=== PATIENT | male | born 1950 | race Caucasian/White ===

== ENCOUNTER 2022-03-28 10:04 | Inpatient (IN) | payer OTHER, SELFPAY ==
[2022-03-28] VITALS (11 sets, daily range): BP systolic 110–140; BP diastolic 63–82; PULSE 56–88; RESP 15–18; TEMP 36.7–38.1; O2SAT 92–98; BMI 30.2; BMI 29.7
--- NOTE | 2022-03-28 10:30 | EX.ED.DYSGE1 ---
HPI History of Present Illness Chief Complaint: Abd Pain Informant: patient Onset/Context/Timing Onset: Yesterday Context: Gradual Onset Current Severity: Moderate Maximum Severity: Moderate Narrative Narrative: Patient presents secondary to right lower quadrant abdominal pain. Pain started yesterday and started more as a band across his mid abdomen. It is now moved to the right lower quadrant. He states has not had much to eat or drink because he has poor appetite. He had some chills this morning but has not measured a fever. He denies urinary symptoms. [facility] Medical History Chronic diarrhea Hypertension Allergy/AdvReac Type Severity Reaction Status Date / Time No Known Allergies Allergy Verified 03/28/22 10:05 Social History Smoking Status: Former smoker ROS ROS ED Constitutional Constitutional ED: Reports chills; Denies fever(s) Eyes Eyes: Denies change in vision or discharge from eye(s) ENT ENT ED: Denies discharge from eye(s), rhinorrhea or sore throat Cardiovascular Cardiovascular: Denies chest pain or palpitations Respiratory/Chest Respiratory/Chest: Denies cough or dyspnea Gastrointestinal Gastrointestinal: Reports abdominal pain; Denies diarrhea, nausea or vomiting Genitourinary Genitourinary ED: Denies dysuria Musculoskeletal Musculoskeletal: Denies back pain or extremity pain Integumentary Denies Abrasions or rash Neurologic Neurologic: Denies headache(s) or weakness Allergic/Immunologic Allergic/Immunologic ED: Denies lip swelling or urticaria EXAM Physical Exam Const Vital Signs: 03/28/22 10:06 03/28/22 14:08 03/28/22 14:24 Temperature 99.5 F H 98.1 F Temperature Source Temporal Temporal Pulse Rate 56 L 85 85 Respiratory Rate 17 16 15 Blood Pressure 129/78 H 133/82 H 133/82 H Blood Pressure Mean 95 99 99 Blood Pressure Source Monitor Pulse Ox 97 95 95 Oxygen Delivery Method Room Air Room Air Room Air Positive well nourished and well developed General Appearance ED: well developed HEENT Reports normocephalic and head/scalp atraumatic Eyes PERRL and EOMs intact bilaterally Neck supple Chest Wall inspection of chest normal and palpation of chest normal Resp normal respiratory effort and clear to auscultation bilaterally Cardio regular rate and regular rhythm GI GI Narrative: Moderate tenderness to the right lower quadrant. Hypoactive bowel sounds. Extremity normal to inspection Neuro oriented x3 and no sensory deficits noted Sensorium / Orientation: alert Motor Exam: strength 5/5 throughout Psych mental status grossly normal Skin no rashes or lesions noted MDM MDM MDM Narrative Medical decision making narrative: Patient declined anything for pain. Lab work obtained along with a CT scan of the abdomen and pelvis. Urinalysis ordered. Lab Data Attestation: I reviewed the patient's lab results. Labs: Laboratory Results - last 24 hr 03/28/22 03/28/22 03/28/22 11:10 11:15 11:15 WBC 11.3 H RBC 4.84 Hgb 15.5 Hct 43.4 MCV 89.7 MCH 32.0 MCHC 35.7 RDW Std Deviation 40.3 RDW Coeff of Francisco 12.2 Plt Count 160 MPV 10.0 Immature Gran % (Auto) 0.300 Neut % (Auto) 86.6 H Lymph % (Auto) 4.6 L Payne % (Auto) 8.1 Eos % (Auto) 0.1 Baso % (Auto) 0.3 Absolute Neuts (auto) 9.8 H Absolute Lymphs (auto) 0.52 L Nucleated RBC % 0 Platelet Estimate ADEQUATE RBC Morphology NORM C+C Sodium 135 L Potassium 3.4 L Chloride 103 Carbon Dioxide 26.0 Anion Gap 6 BUN 12 Creatinine 1.14 Estim Creat Clear Calc 62.38 Est GFR (MDRD) Af Amer 81 Est GFR (MDRD) Non-Af 67 BUN/Creatinine Ratio 10.5 Glucose 125 H Calcium 9.1 Total Bilirubin 0.80 Direct Bilirubin 0.18 AST 23 ALT 30 Alkaline Phosphatase 71 Total Protein 7.9 Albumin 3.7 Globulin 4.2 Urine Color Yellow Urine Clarity Clear Urine pH 7.0 Ur Specific [place] 1.005 Urine Protein Negative Urine Glucose (UA) Normal Urine Ketones Negative Urine Occult Blood Negative Urine Nitrite Negative Urine Bilirubin Negative Urine Urobilinogen Normal Ur Leukocyte Esterase Negative Urine RBC 0 SEEN Urine WBC 0 SEEN Ur Squamous Epith Cells 0 SEEN Urine Bacteria 0 SEEN Urine Mucus 0 SEEN Radiography Diagnostic Testing: Clinical Impression(s) from Imaging Studies Abdomen/Pelvis CT 03/28/22 12:02 IMPRESSION: Mass lesion in the medial aspect of the cecum extending into the appendiceal lumen causing acute appendicitis. A neoplastic process should be ruled out. Electronically Signed: Colton Lind MD at 12:26 EDT , Treatment and Re-Evaluation Narrative: White count is mildly elevated 11.3 with a slight left shift. Chemistry studies unremarkable other than slightly low potassium at 3.4. Urinalysis is normal. CT scan of abdomen and pelvis reveals a mass lesion in the medial aspect of the cecum extending into the appendiceal lumen causing acute appendicitis. Patient has been ordered Zosyn. I spoke with patient and at bedside to explain the CT findings. He states that he has not had a colonoscopy in quite some time. He does have a family history of cancer with colon cancer in his mother. He denies any recent weight loss or night sweats. I will speak with surgery for further treatment. Discharge Plan Triage Chief Complaint: Abd Pain ED Provider: Polina Sifuentes Dx/Rx/DC Orders Clinical Impression: Appendicitis, Cecum mass [facility] Referrals: [facility] [Primary Care Provider] - Disposition Disposition: Acute Care Hospital [facility]
[2022-03-28] MEDS: 0.9% Normal Saline 1,000 ML 150 ML IV (11:18)
[2022-03-28 11:19] LABS: Bacteria 0 SEEN /hpf (None Seen); Mucous, Urine 0 SEEN /hpf (<or=2+); Red Blood Cells-Urine 0 SEEN /hpf (0-5); Squamous Epithelial Cells - UA 0 SEEN /hpf (0-5); White Blood Cells 0 SEEN /hpf (0-5)
[2022-03-28 11:20] LABS: Color, Urine Yellow (Yellow); Glucose, Dipstick Normal (Normal); Ketone-Dipstick Negative (Negative); Leukocyte Esterase-Dipstick Negative /ul (Negative); Nitrite-Dipstick Negative (Negative); Occult Blood-Urine Negative /ul (Negative); Protein-Dipstick Negative (Negative); Specific Gravity, Urine 1.005 (1.002-1.030); Urine Bilirubin Dipstick Negative (Negative); Urine Clarity Clear (Clear); Urine Urobilinogen Normal (Normal)
[2022-03-28 11:25] LABS: Absolute Lymphocyte Count 0.52 X10^3/uL (0.83-4.51); Absolute Neutrophil Count 9.8 X10^3/uL (2.0-7.7); Basophil# 0.03 X10^3/uL; Basophil% 0.3 % (0-1); Eosinophil# 0.01 X10^3/uL; Eosinophils% 0.1 % (0-5); Hematocrit 43.4 % (40-54); Hemoglobin 15.5 g/dL (13.0-16.5); Lymphocyte # 0.52 X10^3/ul (0.83-4.51); Lymphocyte % 4.6 % (19-41); Mean Corp Hgb Conc 35.7 g/dL (32-36); Mean Corpuscular Volume 89.7 fL (80-94); Monocyte# 0.92 X10^3/uL; Monocyte% 8.1 % (0-10); NRBC Flagged by Analyzer 0 % (0-5); Neutrophil # 9.79 X10^3/uL (2.7-7.7); Neutrophil % 86.6 % (47-70); POSITIVE DIFFERENTIAL YES; Platelet Count 160 K/mm3 (150-450); RBC Distribution Width CV 12.2 % (11.6-14.6); RBC Distribution Width SD 40.3 fl (35.1-43.9); Red Blood Count 4.84 M/mm3 (4.6-6.2); White Blood Count 11.3 K/mm3 (4.4-11.0)
[2022-03-28 11:26] LABS: Differential Indicated SCAN CRITERIA MET
[2022-03-28 11:39] LABS: AST(SGOT) 23 U/L (15-37); Alanine Aminotransfer ALT/SGPT 30 U/L (16-61); Albumin, Serum 3.7 g/dL (3.2-5.0); Alkaline Phosphatase 71 U/L (45-117); Anion Gap 6 (5-15); BUN 12 mg/dL (7-18); BUN/Creat Ratio 10.5 RATIO (10-20); Bilirubin, Direct 0.18 mg/dL (0.00-0.30); Calcium,Total 9.1 mg/dL (8.5-10.1); Chloride 103 mmol/L (98-107); Creatinine, Serum 1.14 mg/dL (0.70-1.30); EST Glomerular Filtration Rate 67 mL/min (>60); Est Glom Filt Rate - Afr Amer 81 mL/min (>60); Estimated Creatinine Clearance 62.38 ml/min; Globulin 4.2 g/dL (2.2-4.2); Glucose 125 mg/dL (74-106); Potassium 3.4 mmol/L (3.5-5.1); Protein, Total 7.9 g/dL (6.4-8.2); Sodium Level 135 mmol/L (136-145)
[2022-03-28 11:58] LABS: Platelet Estimate ADEQUATE (ADEQ); Red Cell Morphology NORM C+C NORMAL (NORM C&C)
--- NOTE | 2022-03-28 12:02 | CT_ITS ---
STUDY: CT ABDOMEN AND PELVIS WITH CONTRAST REASON FOR EXAM: Male, 71 years old. RLQ pain -- IV PO Contrast RADIATION DOSAGE (If Supplied By Facility): CTDIvol = ( 15.44 ) mGy, DLP = ( 1178.52 ) mGycm TECHNIQUE: Transaxial images were obtained from the dome of the diaphragm to the symphysis pubis with oral contrast. Oral and amp; IV Gastrografin and amp; 100mL Isovue-300 was administered. Sagittal and coronal images were reconstructed. Individualized dose optimization techniques were used for this CT. COMPARISON: None. FINDINGS: Minimal degree of bibasilar atelectasis. The visualized portions of the heart are within normal limits. There is a 9.4 mm cyst in the posterior midportion of the right lobe of the liver. Normal gallbladder and extrahepatic biliary system. Normal spleen. Normal pancreas. Normal bilateral adrenal glands. Normal right kidney. Normal left kidney. There is a small hiatal hernia. Normal small intestine. There is evidence of a 3.9 cm x 2.6 cm mass in the medial inferior aspect of the cecum extending into the appendiceal lumen. A neoplastic process should be ruled out. This is causing acute appendicitis. Sigmoid diverticulosis. There is a tubular, thick-walled appendix (>7mm), consistent with acute appendicitis. There is scattered atherosclerotic calcification of the abdominal aorta, without a demonstrated aneurysm. Normal inferior vena cava. Normal retroperitoneum. Mild degree of the bladder wall thickening. Small bilateral inguinal hernias containing fat slightly more prominent on the left side. There are diffuse degenerative changes of the visualized lumbar spine. CT/Abdomen/Pelvis WITH Contrast IMPRESSION: Mass lesion in the medial aspect of the cecum extending into the appendiceal lumen causing acute appendicitis. A neoplastic process should be ruled out. Electronically Signed: Colton Lind MD at 12:26 EDT ,
--- NOTE | 2022-03-28 14:47 | PCM.HP.STD ---
HPI - General General Date of Admission: 03/28/22 Date of Service: 03/28/22 Chief Complaint: Abdominal pain HPI Narrative KEN ESPINAL, is a 71 M who presents with 1 day history of abdominal pain. Patient states yesterday he had generalized abdominal pain. He stated it was a band-like pain. He noted the pain localized in the right lower quadrant. Patient states for over 3 years, he has had diarrhea which he has been taking an Imodium-like medication. Patient also notes he takes a medication for bloating and gas production. He has a history of hypertension which is controlled on medication. Patient notes he had nausea, however no vomiting. Patient noted chills, denies fever. Patient notes his most recent colonoscopy was 5-8 years ago in [place]. Per patient he had no abnormalities during the time of the colonoscopy. Patient states his mother was diagnosed with colon cancer at age 80. She did have a reoccurrence of the cancer and ultimately . Patient also notes a maternal uncle diagnosed with colon cancer. Patient denies any abdominal surgeries previously. Patient denies cardiac and pulmonary history. Patient does drink approximately 6-8 beers per week. He is a previous smoker. Quit approximately 20 plus years ago. He denies previous complications or side effects with anesthesia. CT scan of the abdomen/pelvis demonstrated Mass lesion in the medial aspect of the cecum extending into the appendiceal lumen causing acute appendicitis.? A neoplastic process should be ruled out. WBC is 11.3. Hgb and Hct within normal range. Potassium 3.4, Sodium 135. Otherwise unremarkable chemistry panel. [facility] Medical History Chronic diarrhea Hypertension Allergy/AdvReac Type Severity Reaction Status Date / Time No Known Allergies Allergy Verified 03/28/22 10:05 Social History Smoking Status: Former smoker ROS Constitutional Constitutional: Reports systems reviewed and no addt'l complaints, except as documented Eyes Eyes: Reports systems reviewed and no addt'l complaints, except as documented ENT HEENT: Reports systems reviewed and no addt'l complaints, except as documented Cardiovascular Cardiovascular: Reports systems reviewed and no addt'l complaints, except as documented Respiratory/Chest Respiratory/Chest: Reports systems reviewed and no addt'l complaints, except as documented Gastrointestinal Gastrointestinal: Reports systems reviewed and no addt'l complaints, except as documented Genitourinary Genitourinary: Reports systems reviewed and no addt'l complaints, except as documented Musculoskeletal Musculoskeletal: Reports systems reviewed and no addt'l complaints, except as documented Integumentary Integumentary: Reports systems reviewed and no addt'l complaints, except as documented Neurologic Neurologic: Reports systems reviewed and no addt'l complaints, except as documented Psychiatric Psychiatric: Reports systems reviewed and no addt'l complaints, except as documented Endocrine Endocrinology: Reports systems reviewed and no addt'l complaints, except as documented Hematologic/Lymphatic Hematologic/Lymphatic: Reports systems reviewed and no addt'l complaints, except as documented Allergic/Immunologic Allergic/Immunologic: Reports systems reviewed and no addt'l complaints, except as documented Vital Signs Vital Signs Vital Signs: 03/28/22 10:06 03/28/22 14:08 03/28/22 14:24 Temperature 99.5 F H 98.1 F Temperature Source Temporal Temporal Pulse Rate 56 L 85 85 Respiratory Rate 17 16 15 Blood Pressure 129/78 H 133/82 H 133/82 H Blood Pressure Mean 95 99 99 Blood Pressure Source Monitor Pulse Ox 97 95 95 Oxygen Delivery Method Room Air Room Air Room Air Weight Weight: 216 lb 7.903 oz Body Mass Index (BMI) 30.2 Physical Exam Const alert, oriented x3 and no apparent distress HEENT normocephalic and head/scalp atraumatic Eyes PERRL Neck full ROM Lymph Lymphatic: no lymphadenopathy noted Chest inspection of chest normal Resp normal respiratory effort and clear to auscultation bilaterally Cardio regular rate and regular rhythm GI GI Narrative: Obtunded abdomen. Bowel sounds present. Tenderness with guarding in the right lower quadrant. no CVA tenderness Back/Spine no CVA tenderness Extremity General Extremity: edema bilateral lower extremity Details: trace Skin no rashes or lesions noted Neuro no focal motor deficits and no sensory deficits noted Psych mental status grossly normal and thought process normal Results Lab / Micro Data Result Diagrams: 03/28/22 11:15 03/28/22 11:15 Labs: Laboratory Results - last 24 hr 03/28/22 11:10: Urine Color Yellow, Urine Clarity Clear, Urine pH 7.0, Ur Specific [place] 1.005, Urine Protein Negative, Urine Glucose (UA) Normal, Urine Ketones Negative, Urine Occult Blood Negative, Urine Nitrite Negative, Urine Bilirubin Negative, Urine Urobilinogen Normal, Ur Leukocyte Esterase Negative, Urine RBC 0 SEEN, Urine WBC 0 SEEN, Ur Squamous Epith Cells 0 SEEN, Urine Bacteria 0 SEEN, Urine Mucus 0 SEEN 03/28/22 11:15: WBC 11.3 H, RBC 4.84, Hgb 15.5, Hct 43.4, MCV 89.7, MCH 32.0, MCHC 35.7, RDW Std Deviation 40.3, RDW Coeff of [place] 12.2, Plt Count 160, MPV 10.0, Immature Gran % (Auto) 0.300, Neut % (Auto) 86.6 H, Lymph % (Auto) 4.6 L, [place] % (Auto) 8.1, Eos % (Auto) 0.1, Baso % (Auto) 0.3, Absolute Neuts (auto) 9.8 H, Absolute Lymphs (auto) 0.52 L, Nucleated RBC % 0, Platelet Estimate ADEQUATE, RBC Morphology NORM C+C 03/28/22 11:15: Sodium 135 L, Potassium 3.4 L, Chloride 103, Carbon Dioxide 26.0, Anion Gap 6, BUN 12, Creatinine 1.14, Estim Creat Clear Calc 62.38, Est GFR (MDRD) Af Amer 81, Est GFR (MDRD) Non-Af 67, BUN/Creatinine Ratio 10.5, Glucose 125 H, Calcium 9.1, Total Bilirubin 0.80, Direct Bilirubin 0.18, AST 23, ALT 30, Alkaline Phosphatase 71, Total Protein 7.9, Albumin 3.7, Globulin 4.2 Radiology Impression Abdomen/Pelvis CT 03/28/22 12:02 IMPRESSION: Mass lesion in the medial aspect of the cecum extending into the appendiceal lumen causing acute appendicitis. A neoplastic process should be ruled out. Electronically Signed: Colton Lind MD at 12:26 EDT , Assessment & Plan Assessment/Plan (1) Appendicitis: (2) Cecum mass: PLAN: I have asked to evaluate this patient in conjunction with Dr. De Leon. Dr. De Leon has independently evaluated this patient. Patient has evidence of a cecal mass that has contributed to the develop of acute appendicitis according to imaging of the CT scan. Dr. De Leon will plan to perform a laparoscopic right hemicolectomy, possible ileostomy creation. Patient will proceed un-bowel prepped. Procedure details, risks and benefits have been explained to the patient and his . Patient will plan to be admitted to [facility] following procedure. Patient and his have had the opportunity to ask and have questions answered. Patient verbally understands and agrees with the plan. Thank you for the opportunity to participate in this patient's care. Charges/Coding Visit Charges Office Visits / Consults: [id number] IP Consult L3
--- NOTE | 2022-03-28 15:48 | EKG12_ITS ---
Test Reason : PRE-OP Blood Pressure : / mmHG Vent. Rate : 090 BPM Atrial Rate : 090 BPM P-R Int : 154 ms QRS Dur : 110 ms QT Int : 376 ms P-R-T Axes : 066 -56 023 degrees QTc Int : 459 ms Sinus rhythm with Premature atrial complexes Left axis deviation Inferior infarct , age undetermined Abnormal ECG No previous ECGs available Confirmed by ANNE VALADEZ, PRERNA ([id number]), video news editor CHARMAINE DE LA FUENTE ([id number]) on 03/31/2022 2:43:37 P M Referred By: NIVIA Confirmed By:EMILI RODRÍGUEZ MD
--- NOTE | 2022-03-28 16:00 | COL._PTH ---
PATIENT: KEN ESPINAL LOC: MS3 U#:[id number] AGE/SX: 71/M ROOM: NM316 RE03/28/[address]: Dr. Filiberto De Leon MD : 1950 BED: 1 DIS: 04/01/2022 SPEC #: [id number] RECD: 03/29/22 10:40 STATUS: ALIYAH RADHA #: [id number] TALAT: 03/28/22 16:[address]: Filiberto De Leon DEPT: SURGICAL PATHOLOGY RECD BY: Dalila Fernandes ENTERED: 03/29/22 11:26 SP TYPE: COLON OTHR DR: [facility] Tissues: Colon, NOS Procedures: Surgery Specimen Level V HEADER OPERATION: Hand-assisted laparoscopic right hemicolectomy PRE-OP DIAGNOSIS: Appendicitis, cecum mass TISSUE SUBMITTED: Right colon MICROSCOPIC DIAGNOSIS Right colon, segmental colectomy: Acute necrotizing appendicitis. Margins of excision with no pathologic change. Nine out of nine lymph nodes with no pathologic change. See comment. AM:tim 03/31/2022 COMMENT The appendicitis is associated with an exuberant polypoid formation at the orifice of the appendix. No malignant neoplasm is identified. The lesion at angelique is benign polypoid small bowel mucosa. Clinical correlation is suggested. MICROSCOPIC DESCRIPTION Slides are reviewed. GROSS DESCRIPTION Received in fixative is one container labeled with the patient's name and designated right colon. The specimen consists of a 14 cm segment of bowel with attached 5.5 cm segment of terminal ileum and attached 7.5 cm of appendix that has a diameter of 1.2 cm. / AM:tim 03/29/2022 The appendiceal orifice contains a leach polypoid lesion measuring 1.7 x 1.5 x 1 cm. The neoplasm does not appear to extend to the tip of the appendix which is essentially unremarkable. The attached fibrofatty tissue contains a number of nodules resembling lymph nodes. Chain Maker Machine sections are submitted as follows: 1 - mucosal margins, 2 - ileocecal valve, 3 - uninvolved small and large bowel, 4-6 - tumor, 7??distal appendix, 8 & 9 - multiple lymph nodes in each cassette, 10 - cecum, 11 - polypoid lesion at stapled margin, 12-14 - remainder of appendix. / AM:tim 03/30/2022 TC:2 CPT: 50978
[2022-03-28] MEDS: Lactated Ringers 1,000 ML 40 ML IV ×2 (17:45→19:45)
[2022-03-28] MEDS: BUPIVACAINE LIPOSOME/PF 20 ML VIAL OPERA.SITE (19:30)
[2022-03-28] MEDS: 0.9% Normal Saline (Pres. free 10 ML Vial (19:30)
[2022-03-28] MEDS: Bupivacaine 0.25% 30 ML Vial (19:30)
--- NOTE | 2022-03-28 19:46 | OP.PCM_ITS ---
Report of Operation Date of Procedure: 03/28/22 Pre-Operative Diagnosis: 1. Cecal tumor causing acute appendicitis Post-Operative Diagnosis: 1. Cecal tumor causing acute appendicitis (uncomplicated) 2. Hepatic flexure polyp Surgery/Procedure Performed:: 1. Hand-assisted laparoscopic right hemicolectomy with handsewn ileocolic anastomosis (end-to-end) 2. Transversus abdominus plane block Surgeon: Filiberto De Leon wader boot top assembler: Henry De Los Santos wader boot top assembler: Brittany Pickering Type of Anesthesia: General/Supplemental Anesthesiologist: Latoya Richards Specimen's removed: Right colon Estimated Blood Loss (mL): 100 Description of Procedure: After appropriate identification in the preoperative holding area the patient was brought to the operating room where she was positioned supine in the operating room table. There he underwent induction of general anesthesia. He was administered preoperative antibiotics for surgical prophylaxis. A Perea catheter was then placed for accurate ins and outs monitoring. Anesthesia placed a orogastric tube for gastric decompression. A formal timeout was conducted to confirm patient and procedure and the procedure was begun with a Burns entry in the supraumbilical position and placement of a 12 mm balloon trocar. Pneumoperitoneum was established at 15 mmHg and an inspection of the peritoneum was made. There was no evidence of inadvertent injury to the viscera below from our entry. I performed a bilateral TAP block using a solution of Exparel, bupivacaine, and saline to instill 80 mL (total volume) in evenly measured aliquots under laparoscopic direction. 5 mm ports were placed in the right lower quadrant, right upper quadrant and suprapubic positions under laparoscopic visualization. The patient was positioned with the right side up to expose the ascending colon, and I began to mobilize the colon in a lateral- to-medial fashion by opening the peritoneal reflection along the right paracolic gutter using the laparoscopic Enseal device. I continued this mobilization until we reached the liver. I also performed some limited mobilization of the terminal ileum where there were a few adhesions to the pelvic sidewall and noted a very dilated/taut (but nonperforated) appendix. I then began to try to isolate the ileocolic pedicle, however I quickly found adhesions between the cecal mesocolon and sigmoid colon/mesocolon. These were carefully lysed?favoring the out-coming cecum so as not to disrupt the blood supply to the sigmoid colon. As I approached the area where the area where the vessel was presumed, I was still unable to clearly visualize it so we abandoned this approach and moved to mobilization of the hepatic flexure by taking the attachments in the hepatocolic ligament. This proved somewhat tedious as there were numerous adhesions between the colon and the gallbladder. Even with this mobilization, the colon still seemed adherent in the hepatic flexure and reaching a relative impasse with what could be achieved laparoscopically, we decided to proceed with placement of a GelPort. The supraumbilical port site was extended for approximately 7 cm cephalad and our GelPort was inserted. In a hand assist arrangement we were able to mobilize the remainder of the hepatic flexure using the laparoscopic Enseal device. Returning to the territory of the ileocolic vessel, we are still unable to palpate a pulse in that mesocolon and decided to take this vessel once the bowel was eviscerated. The GelPort was removed and the specimen was eviscerated through this opening. The anterior leaflet of the ascending colon mesocolon was opened and I was able to palpate the ileocolic vessel. This was clamped and then ligated with a silk ligature. The specimen side was also ligated and the began using the Enseal to divide the remaining mesentery and mesocolon to our proximal and distal transection points in the ileum and transverse colon, respectively. Through this process, it became evident that we were lacking mobility on the transverse colon despite trying to redelivered through the abdominal wall opening. We simply could not expose enough colon to be comfortable performing our usual stapled ileocolic anastomosis. With this observation the specimen was passed off the field for pathologic processing and, I made a decision to perform a end-to-end handsewn ileocolic anastomosis. This was accomplished by placing a back row of interrupted 3-0 silk then running 2x3 0 PDS sutures from this back wall and opposite directions. We had an obvious to the size mismatch between the small bowel and the colon so larger bites were taken of the colon to make this anastomosis work. Once this inner layer was accomplished, we added a second anterior layer with additional interrupted 3-0 silk sutures in a Limbert fashion. Lastly we tacked the overlying omentum in that area to the serosa of t he small bowel and colon as a another layer of protection for the anastomosis. Satisfied with this, the bowel was returned to the abdomen. The wound protector was removed and the miniature laparotomy incision was closed with #1 PDS in a bidirectional fashion from the corners and tying in the middle. The subcutaneous layer was irrigated above the fascia and the skin was closed with skin angelique. The remaining 5 mm port sites were also closed with skin angelique. Dressings were applied and the patient was awoken from general anesthetic without complication. He was taken to PACU for ongoing recovery. Synoptic portion of report Operation performed with curative intent: yes Tumor location: Cecum Extent of colon and vascular resection: Colon resected from terminal ileum through hepatic flexure on to transverse colon. Probable disruption of right branch of middle colic vessel Complications None Admit VTE Documentation VTE Present on Admission: Yes VTE Mechan Device Prophylaxis: SCD's
--- NOTE | 2022-03-28 20:50 | NURSING ---
will bring in med list tomorrow 03/29/22
[2022-03-28] MEDS: Acetaminophen 500 MG Tablet 1000 MG PO (23:19)
[2022-03-29] VITALS (13 sets, daily range): BP systolic 138–156; BP diastolic 76–94; PULSE 64–88; RESP 14–18; TEMP 36.7–37.4; O2SAT 94–96
[2022-03-29 07:07] LABS: Absolute Lymphocyte Count 0.47 X10^3/uL (0.83-4.51); Basophil# 0.01 X10^3/uL; Basophil% 0.1 % (0-1); Hematocrit 38.4 % (40-54); Hemoglobin 13.5 g/dL (13.0-16.5); Lymphocyte # 0.47 X10^3/ul (0.83-4.51); Lymphocyte % 5.8 % (19-41); Mean Corp Hgb Conc 35.2 g/dL (32-36); Mean Corpuscular Hgb 31.8 pg (27.0-32.0); Mean Corpuscular Volume 90.4 fL (80-94); Mean Platelet Vol. 10.3 fl (6.2-12.0); Monocyte# 0.53 X10^3/uL; Monocyte% 6.6 % (0-10); NRBC Flagged by Analyzer 0 % (0-5); Neutrophil # 7.02 X10^3/uL (2.7-7.7); Neutrophil % 87.1 % (47-70); POSITIVE DIFFERENTIAL YES; Platelet Count 176 K/mm3 (150-450); RBC Distribution Width CV 12.5 % (11.6-14.6); RBC Distribution Width SD 41.3 fl (35.1-43.9); Red Blood Count 4.25 M/mm3 (4.6-6.2); White Blood Count 8.1 K/mm3 (4.4-11.0)
[2022-03-29 07:10] LABS: Differential Indicated SCAN CRITERIA MET
[2022-03-29 07:24] LABS: Differential Comment SCANNED
[2022-03-29 07:44] LABS: Anion Gap 7 (5-15); BUN 12 mg/dL (7-18); BUN/Creat Ratio 10.8 RATIO (10-20); Calcium,Total 8.1 mg/dL (8.5-10.1); Chloride 100 mmol/L (98-107); Creatinine, Serum 1.11 mg/dL (0.70-1.30); EST Glomerular Filtration Rate 69 mL/min (>60); Est Glom Filt Rate - Afr Amer 84 mL/min (>60); Estimated Creatinine Clearance 64.07 ml/min; Glucose 163 mg/dL (74-106); Potassium 3.6 mmol/L (3.5-5.1); Sodium Level 132 mmol/L (136-145)
[2022-03-29] MEDS: 0.9% Saline Lock 10 ML Syringe IV ×2 (08:23→23:41)
[2022-03-29] MEDS: Acetaminophen 500 MG Tablet 1000 MG PO ×4 (08:23→23:41)
[2022-03-29] MEDS: Tamsulosin HCl 0.4 MG Capsule PO (08:24)
--- NOTE | 2022-03-29 10:50 | CASEMGMT ---
RN JER ASSISTANT ADMINISTRATOR CM to room to meet with patient for initial transition planning/care coordination assessment. RN JER introduced self and role at [facility]. Pt voices understanding and consents to assessment at this time. Pt resting in bed in no distress at this time. @ bedside. Pt is A/O at this time and answers all questions appropriately. Care providers, pharmacy, and demographics verified/updated at this time. PCP: Dr Payan @ [facility] Specialists: none Preferred Pharmacy:[facility] retail Insurance: [place], [facility] A only Prescription Benefit: [place] only Living Will/HPOA: Has LW and HCPOA, who is his and son. LNOK: , Evie. Son, Jerry Living Arrangements: Lives w/ in 2-story home w/3 steps to enter. Denies difficulty w/stairs. Independent w/ADL's. does home mgmt tasks. Transportation: Pt states drives self and states no transportation concerns at this time. also drives DME: Denies using any DME and denies needs. HHC/SNF: No hx of either. No needs identified. Pt wishes to return home and states has no concerns with going home at time of discharge. CM to follow for any discharge planning/needs. Pt and voice no concerns/needs at this time. Advised them to ask for CM if any further questions/concerns/needs arise. They voice understanding. PLAN: Home Denise LEON RN, CM
--- NOTE | 2022-03-29 11:04 | PN.SURG_ITS ---
Subjective Subjective Patient was seen and examined during AM rounds. He reports resting overnight and denies any acute events. His pain is described as manageable. He states that he has tried his liquid diet and not had any nausea, but also denies any flatus or bowel movement. He has not yet ambulated since surgery. Objective Data Objective Data Vital Signs: Vital Signs Temp Pulse Resp BP Pulse Ox O2 Del Method O2 Flow Rate 98.1 F 76 16 138/84 H 95 Room Air 1 03/29/22 08:57 03/29/22 08:57 03/29/22 08:57 03/29/22 08:57 03/29/22 09:14 03/29/22 09:14 03/29/22 08:57 Oxygen Flow Rate (L/min) 1 Oxygen Delivery Method Room Air Weight: 212 lb 12.8 oz Body Mass Index (BMI) 29.7 Intake & Output: Intake and Output for Last 24 Hours 03/27/22 03/28/22 03/29/22 23:59 23:59 23:59 Intake Total 2150 / 2150 516 / 516 Output Total 600 / 1050 1450 / 1450 Balance 1550 / 1100 -934 / -934 Lab / Micro Data Result Diagrams: 03/29/22 06:25 03/29/22 06:25 Labs: Laboratory Results - last 24 hr 03/28/22 11:10: Urine Color Yellow, Urine Clarity Clear, Urine pH 7.0, Ur Specific [place] 1.005, Urine Protein Negative, Urine Glucose (UA) Normal, Urine Ketones Negative, Urine Occult Blood Negative, Urine Nitrite Negative, Urine Bilirubin Negative, Urine Urobilinogen Normal, Ur Leukocyte Esterase Negative, Urine RBC 0 SEEN, Urine WBC 0 SEEN, Ur Squamous Epith Cells 0 SEEN, Urine Bacteria 0 SEEN, Urine Mucus 0 SEEN 03/28/22 11:15: WBC 11.3 H, RBC 4.84, Hgb 15.5, Hct 43.4, MCV 89.7, MCH 32.0, MCHC 35.7, RDW Std Deviation 40.3, RDW Coeff of [place] 12.2, Plt Count 160, MPV 10.0, Immature Gran % (Auto) 0.300, Neut % (Auto) 86.6 H, Lymph % (Auto) 4.6 L, [place] % (Auto) 8.1, Eos % (Auto) 0.1, Baso % (Auto) 0.3, Absolute Neuts (auto) 9.8 H, Absolute Lymphs (auto) 0.52 L, Nucleated RBC % 0, Platelet Estimate ADEQUATE, RBC Morphology NORM C+C 03/28/22 11:15: Sodium 135 L, Potassium 3.4 L, Chloride 103, Carbon Dioxide 26.0, Anion Gap 6, BUN 12, Creatinine 1.14, Estim Creat Clear Calc 62.38, Est GFR (MDRD) Af Amer 81, Est GFR (MDRD) Non-Af 67, BUN/Creatinine Ratio 10.5, Glucose 125 H, Calcium 9.1, Total Bilirubin 0.80, Direct Bilirubin 0.18, AST 23, ALT 30, Alkaline Phosphatase 71, Total Protein 7.9, Albumin 3.7, Globulin 4.2 03/29/22 06:25: Sodium 132 L, Potassium 3.6, Chloride 100, Carbon Dioxide 25.0, Anion Gap 7, BUN 12, Creatinine 1.11, Estim Creat Clear Calc 64.07, Est GFR (MDRD) Af Amer 84, Est GFR (MDRD) Non-Af 69, BUN/Creatinine Ratio 10.8, Glucose 163 H, Calcium 8.1 L 03/29/22 06:25: WBC 8.1, RBC 4.25 L, Hgb 13.5, Hct 38.4 L, MCV 90.4, MCH 31.8, MCHC 35.2, RDW Std Deviation 41.3, RDW Coeff of [place] 12.5, Plt Count 176, MPV 10.3, Immature Gran % (Auto) 0.400, Neut % (Auto) 87.1 H, Lymph % (Auto) 5.8 L, [place] % (Auto) 6.6, Eos % (Auto) 0.0, Baso % (Auto) 0.1, Absolute Neuts (auto) 7.0, Absolute Lymphs (auto) 0.47 L, Nucleated RBC % 0, Differential Comment SCANNED Radiography Diagnostic Testing: Radiology Impression Abdomen/Pelvis CT 03/28/22 12:02 IMPRESSION: Mass lesion in the medial aspect of the cecum extending into the appendiceal lumen causing acute appendicitis. A neoplastic process should be ruled out. Electronically Signed: Colton Lind MD at 12:26 EDT , Physical Exam Const oriented x3 and no apparent distress Resp normal respiratory effort GI GI Narrative: Mildly distended, operative dressings remain intact, soft, improved tenderness from yesterday with palpation Bladder / Kidney Exam: catheter in place urethral (Draining clear urine) Assessment & Plan Assessment/Plan (1) Appendicitis: (2) Cecum mass: (3) Status post right hemicolectomy: PLAN: Plan Patient is postoperative day 1 from emergent hand-assisted laparoscopic right hemicolectomy for cecal mass causing acute appendicitis. Patient is overall doing well in his recovery with manageable pain. We are still awaiting return of bowel function. Given that case had to be done with a handsewn, end-to-end anastomosis there is some concern for anastomotic edema and we will plan to proceed slowly with diet advancement until patient is demonstrating return of bowel function. For the interim, would like to enact other ERAS measures including discontinuation of Perea and early mobilization. ? Continue clear liquid diet (without carbonation) ? Discontinue [place] catheter and follow for spontaneous void ? Encourage mobilization Neuro: As needed oxycodone, as needed Dilaudid, as needed acetaminophen Pulm/CV: Incentive spirometer, monitor hypertension and we will plan to add home meds once tolerating more advanced diet FEN/GI: Monitor electrolytes daily labs, continue clear liquid diet, monitor for return of bowel function : Discontinue [place] catheter and follow for spontaneous void Heme/ID: CBC reassuring today, continue to trend, no indication for postoperative antibiotics Endo: No acute issues Proph: Mobilize and ambulate as tolerated Dispo: Continue inpatient stay Charges/Coding Visit Charges Inpatient E&M: 51050 Subs Hosp L2
--- NOTE | 2022-03-29 14:43 | CASEMGMT ---
Update [facility] at this time.
[2022-03-30] VITALS (9 sets, daily range): BP systolic 138–159; BP diastolic 87–99; PULSE 70–80; RESP 16–18; TEMP 36.7–37.1; O2SAT 94–97
[2022-03-30 05:33] LABS: Absolute Lymphocyte Count 0.83 X10^3/uL (0.83-4.51); Absolute Neutrophil Count 4.9 X10^3/uL (2.0-7.7); Basophil# 0.03 X10^3/uL; Basophil% 0.5 % (0-1); Eosinophil# 0.01 X10^3/uL; Eosinophils% 0.2 % (0-5); Hematocrit 40.9 % (40-54); Hemoglobin 13.9 g/dL (13.0-16.5); Lymphocyte # 0.83 X10^3/ul (0.83-4.51); Mean Corpuscular Volume 91.3 fL (80-94); Mean Platelet Vol. 10.4 fl (6.2-12.0); Monocyte# 0.57 X10^3/uL; Monocyte% 8.9 % (0-10); NRBC Flagged by Analyzer 0 % (0-5); Neutrophil # 4.94 X10^3/uL (2.7-7.7); Neutrophil % 77.2 % (47-70); Platelet Count 160 K/mm3 (150-450); RBC Distribution Width CV 12.4 % (11.6-14.6); RBC Distribution Width SD 41.5 fl (35.1-43.9); Red Blood Count 4.48 M/mm3 (4.6-6.2); White Blood Count 6.4 K/mm3 (4.4-11.0)
[2022-03-30 05:52] LABS: Anion Gap 6 (5-15); BUN 11 mg/dL (7-18); BUN/Creat Ratio 11.5 RATIO (10-20); Calcium,Total 8.4 mg/dL (8.5-10.1); Chloride 103 mmol/L (98-107); Creatinine, Serum 0.95 mg/dL (0.70-1.30); EST Glomerular Filtration Rate 82 mL/min (>60); Est Glom Filt Rate - Afr Amer 100 mL/min (>60); Estimated Creatinine Clearance 74.86 ml/min; Glucose 117 mg/dL (74-106); Potassium 3.7 mmol/L (3.5-5.1); Sodium Level 133 mmol/L (136-145)
--- NOTE | 2022-03-30 10:20 | PCM.PN.SRG ---
Subjective Subjective Patient seen and examined during AM rounds. He denies any acute events overnight. He confirms that he has been mobilizing frequently with at least 4 walks yesterday. He has minimal abdominal discomfort. He has not had any passage of flatus or stool and does relate that he has had some burping and hiccuping. Objective Data Objective Data Vital Signs: Vital Signs Temp Pulse Resp BP Pulse Ox O2 Del Method O2 Flow Rate 98.8 F 78 18 139/99 H 96 Room Air 1 03/30/22 08:19 03/30/22 08:19 03/30/22 08:19 03/30/22 08:19 03/30/22 08:19 03/30/22 08:19 03/29/22 13:29 Oxygen Flow Rate (L/min) 1 Oxygen Delivery Method Room Air Weight: 212 lb 12.784 oz Body Mass Index (BMI) 29.7 Intake & Output: Intake and Output for Last 24 Hours 03/28/22 03/29/22 03/30/22 23:59 23:59 23:59 Intake Total 2150 / 2150 1016 / 1016 500 / 500 Output Total 600 / 1050 1450 / 1450 Balance 1550 / 1100 -434 / -434 500 / 500 Lab / Micro Data Result Diagrams: 03/30/22 04:26 03/30/22 04:26 Labs: Laboratory Results - last 24 hr 03/30/22 04:26: WBC 6.4, RBC 4.48 L, Hgb 13.9, Hct 40.9, MCV 91.3, MCH 31.0, MCHC 34.0, RDW Std Deviation 41.5, RDW Coeff of [place] 12.4, Plt Count 160, MPV 10.4, Immature Gran % (Auto) 0.200, Neut % (Auto) 77.2 H, Lymph % (Auto) 13.0 L, [place] % (Auto) 8.9, Eos % (Auto) 0.2, Baso % (Auto) 0.5, Absolute Neuts (auto) 4.9, Absolute Lymphs (auto) 0.83, Nucleated RBC % 0 03/30/22 04:26: Sodium 133 L, Potassium 3.7, Chloride 103, Carbon Dioxide 24.0, Anion Gap 6, BUN 11, Creatinine 0.95, Estim Creat Clear Calc 74.86, Est GFR (MDRD) Af Amer 100, Est GFR (MDRD) Non-Af 82, BUN/Creatinine Ratio 11.5, Glucose 117 H, Calcium 8.4 L Physical Exam Const oriented x3 Resp normal respiratory effort GI GI Narrative: Nondistended, soft, minimally tender to palpation about laparotomy incision. Dressings are removed today and patient's abdominal wounds remain well approximated with skin angelique. There is no periincisional erythema or drainage. Assessment & Plan Assessment/Plan (1) Appendicitis: (2) Cecum mass: (3) Status post right hemicolectomy: PLAN: Plan Patient is postoperative day 2 from emergent hand-assisted laparoscopic right hemicolectomy for cecal mass causing acute appendicitis. Patient is overall doing well in his recovery with manageable pain. We are still awaiting return of bowel function. Given that case had to be done with a handsewn, end-to-end anastomosis there is some concern for anastomotic edema and we will plan to proceed slowly with diet advancement until patient is demonstrating return of bowel function. For the interim, would like to enact other ERAS measures including discontinuation of Perea and early mobilization. ? Continue clear liquid diet (without carbonation) ? Encourage mobilization Neuro: As needed oxycodone, as needed Dilaudid, as needed acetaminophen Pulm/CV: Incentive spirometer, monitor hypertension and we will plan to add home meds once tolerating more advanced diet FEN/GI: Monitor electrolytes daily labs?replete potassium today and increase rate of normal saline given relative hyponatremia, continue clear liquid diet, monitor for return of bowel function : Patient voiding spontaneously without issue Heme/ID: CBC reassuring today, continue to trend, no indication for postoperative antibiotics Endo: No acute issues Proph: Mobilize and ambulate as tolerated Dispo: Continue inpatient stay
--- NOTE | 2022-03-30 10:52 | NURSING ---
Dr. De Leon texted that pt uvula is mildly inflamed with whitish skin hanging from it which caused him to become nauseous while chewing gum. Threw up a sm amt. with a sm amt of blood in it. States has mild sore throat.
[2022-03-30] MEDS: Acetaminophen 500 MG Tablet 1000 MG PO ×2 (11:08→17:54)
[2022-03-30] MEDS: Potassium Chloride 10mEq/100mL 10 MEQ/100 ML IV.SOLN. 100 MEQ IV BOLUS (13:50)
[2022-03-30] MEDS: BENZOCAINE/MENTHOL 1 LOZENGE MUCOUS MEM ×2 (13:50→18:02)
[2022-03-30] MEDS: 0.9% Saline Lock 10 ML Syringe IV ×3 (13:59→17:56)
[2022-03-30] MEDS: 0.9% Normal Saline 1,000 ML 50 ML IV (14:30)
[2022-03-30] MEDS: Tamsulosin HCl 0.4 MG Capsule PO (16:31)
[2022-03-30] MEDS: Potassium Chloride 10mEq/100mL 10 MEQ/100 ML IV.SOLN. 50 MEQ IV BOLUS (16:31)
[2022-03-31] MEDS: Acetaminophen 500 MG Tablet 1000 MG PO ×4 (00:32→17:00)
[2022-03-31 02:00] VITALS: BP 142/84; PULSE 72; RESP 16; TEMP 36.8; O2SAT 97
[2022-03-31 05:08] LABS: Absolute Lymphocyte Count 0.95 X10^3/uL (0.83-4.51); Absolute Neutrophil Count 4.3 X10^3/uL (2.0-7.7); Basophil# 0.03 X10^3/uL; Basophil% 0.5 % (0-1); Eosinophil# 0.04 X10^3/uL; Eosinophils% 0.7 % (0-5); Hemoglobin 13.9 g/dL (13.0-16.5); Lymphocyte # 0.95 X10^3/ul (0.83-4.51); Lymphocyte % 15.7 % (19-41); Mean Corp Hgb Conc 34.8 g/dL (32-36); Mean Corpuscular Hgb 31.2 pg (27.0-32.0); Mean Corpuscular Volume 89.9 fL (80-94); Mean Platelet Vol. 9.9 fl (6.2-12.0); Monocyte# 0.71 X10^3/uL; Monocyte% 11.8 % (0-10); NRBC Flagged by Analyzer 0 % (0-5); Neutrophil # 4.29 X10^3/uL (2.7-7.7); Platelet Count 182 K/mm3 (150-450); RBC Distribution Width CV 12.1 % (11.6-14.6); RBC Distribution Width SD 40.1 fl (35.1-43.9); Red Blood Count 4.45 M/mm3 (4.6-6.2)
[2022-03-31 05:32] LABS: Anion Gap 8 (5-15); BUN 15 mg/dL (7-18); BUN/Creat Ratio 17.8 RATIO (10-20); Calcium,Total 8.1 mg/dL (8.5-10.1); Chloride 102 mmol/L (98-107); Creatinine, Serum 0.84 mg/dL (0.70-1.30); EST Glomerular Filtration Rate 95 mL/min (>60); Est Glom Filt Rate - Afr Amer 115 mL/min (>60); Estimated Creatinine Clearance 84.66 ml/min; Glucose 99 mg/dL (74-106); Potassium 3.4 mmol/L (3.5-5.1); Sodium Level 134 mmol/L (136-145)
[2022-03-31 08:00] VITALS: BP 147/93; PULSE 68; RESP 16; TEMP 36.4; O2SAT 99
[2022-03-31 08:54] VITALS: BP 147/93; PULSE 68; RESP 16; TEMP 36.4; O2SAT 98
[2022-03-31] MEDS: 0.9% Normal Saline 1,000 ML 50 ML IV (11:12)
--- NOTE | 2022-03-31 11:41 | PN.SURG_ITS ---
Subjective Subjective Patient seen and examined during morning rounds. He reports a better night overnight. He describes minimal abdominal pain and confirms that he has had return of bowel function with consistent passage of gas. He has not yet had a bowel movement. He does not feel the nausea or hiccuping/burping that he felt yesterday. Objective Data Objective Data Vital Signs: Vital Signs Temp Pulse Resp BP Pulse Ox O2 Del Method O2 Flow Rate 97.5 F L 68 16 147/93 H 98 Room Air 1 03/31/22 08:54 03/31/22 08:54 03/31/22 08:54 03/31/22 08:54 03/31/22 08:54 03/31/22 08:54 03/31/22 02:00 Oxygen Flow Rate (L/min) 1 Oxygen Delivery Method Room Air Weight: 212 lb 12.784 oz Body Mass Index (BMI) 29.7 Intake & Output: Intake and Output for Last 24 Hours 03/29/22 03/30/22 03/31/22 23:59 23:59 23:59 Intake Total 1016 / 1016 1100 / 1100 1000 / 1000 Output Total 1450 / 1450 Balance -434 / -434 1100 / 1100 1000 / 1000 Lab / Micro Data Result Diagrams: 03/31/22 04:30 03/31/22 04:30 Labs: Laboratory Results - last 24 hr 03/31/22 04:30: WBC 6.0, RBC 4.45 L, Hgb 13.9, Hct 40.0, MCV 89.9, MCH 31.2, MCHC 34.8, RDW Std Deviation 40.1, RDW Coeff of [place] 12.1, Plt Count 182, MPV 9.9, Immature Gran % (Auto) 0.300, Neut % (Auto) 71.0 H, Lymph % (Auto) 15.7 L, [place] % (Auto) 11.8 H, Eos % (Auto) 0.7, Baso % (Auto) 0.5, Absolute Neuts (auto) 4.3, Absolute Lymphs (auto) 0.95, Nucleated RBC % 0 03/31/22 04:30: Sodium 134 L, Potassium 3.4 L, Chloride 102, Carbon Dioxide 24.0, Anion Gap 8, BUN 15, Creatinine 0.84, Estim Creat Clear Calc 84.66, Est GFR (MDRD) Af Amer 115, Est GFR (MDRD) Non-Af 95, BUN/Creatinine Ratio 17.8, Glucose 99, Calcium 8.1 L Physical Exam Const oriented x3 and no apparent distress Resp normal respiratory effort GI GI Narrative: Nondistended, soft, minimally tender to palpation about laparotomy incision. Skin angelique remain intact the patient's incisions, but there is no drainage or erythema Assessment & Plan Assessment/Plan (1) Appendicitis: (2) Cecum mass: (3) Status post right hemicolectomy: PLAN: Plan Patient is postoperative day 3 from emergent hand-assisted laparoscopic right hemicolectomy for cecal mass causing acute appendicitis. Patient continues to do well in his recovery and has experienced return of bowel function?as manifested with flatus. Therefore, we will advance his diet and resume some of his home medications. Neuro: As needed oxycodone, discontinue as needed Dilaudid, as needed acetaminophen Pulm/CV: Incentive spirometer, resume home amlodipine FEN/GI: Monitor electrolytes daily labs?replete potassium again today, KVO, advance to full liquid diet, monitor for return of bowel function : Patient voiding spontaneously without issue Heme/ID: CBC reassuring today, continue to trend, no indication for postoperative antibiotics Endo: No acute issues Proph: Mobilize and ambulate as tolerated Dispo: Continue inpatient stay Charges/Coding Visit Charges Inpatient E&M: 08659 Subs Hosp L2
--- NOTE | 2022-03-31 11:48 | PCM.DC ---
Documented by User: Dr. Filiberto De Leon MD 04/04/22 12:58 Discharge Instructions Diet Discharge Diet: Soft diet Activity Discharge Activity: May Not Drive (May not drive while taking narcotic pain medications) and May Shower May resume sexual activity in: 2 weeks Ice area for (Minutes): 20 Lifting Restrictions: Limit lifting to <15lbs for 4 weeks following surgery Dressing / Incision Call your doctor if your incision/area has: Sudden Increased Bleeding, Increased Pain/ Swelling, Increased Redness, Foul Smelling Discharge and Swelling at the incision site Call your doctor if you observe: Fever of 101 or Higher, Inability to urinate, Inability to have a bowel movement and Uncontrolled pain Suture Line Care: Avoid Pulling/Pushing Remove Dressing in: 2 days (Please leave steri strips (medical tape) in place until they fall off spontaneously or are removed at your follow-up appointment) Cleanse incision/area with: Keep Dressing Clean & Dry Follow Up Care Please Follow Up With: Filiberto De Leon MD When: 1 week postop Test Results: Test results from this visit will be discussed in further detail at your follow-up appointment, if applicable. Discharge Plan Admission Admit Date/Time: 03/28/22 15:31 Primary Reason for Your Visit: Acute appendicitis; colon mass was ruled out with pathology Attending Provider: Filiberto De Leon Primary Care Provider: [facility],[place] Discharge Orders/Prescriptions Prescriptions: New oxycodone 5 mg Tablet 5 mg PO Q4H PRN PRN (Reason: Pain Score 6-10) 5 Days Qty: 10 0RF Continued cholecalciferol (vitamin D3) 50 mcg (2,000 unit) Tablet 50 mcg PO DAILY simethicone 80 mg Tablet,Chewable 80 mg PO DAILY amlodipine 10 mg Tablet 10 mg PO DAILY sildenafil 50 mg Tablet 50 mg PO PRN PRN (Reason: Erectile Dysfunction) Rx Instructions: administer 30 minutes to 4 hours before activity loperamide 2 mg Tablet 2 mg PO Q4H PRN PRN (Reason: Diarrhea) Rx Instructions: administer after each loose stool until symptoms controlled; do not exceed 8 mg per 24 hrs tamsulosin 0.4 mg Capsule 0.4 mg PO DAILY glucosamine-chondroitin 750 mg capsule 1 mg PO/SL DAILY Referrals / Follow Up: [place] [Primary Care Provider] - Disposition Disposition (needs filled in before D/C Order can be placed): Home, Self Care Documented by User: Dr. Marisa Ma MD 04/01/22 08:01 Discharge Instructions Follow Up Care When: 1 week postop?next week for staple removal. After 5:00 on the weekends and concerns call [phone]. Discharge Plan Admission Admit Date/Time: 03/28/22 15:31 Primary Reason for Your Visit: Acute appendicitis; colon mass was ruled out with pathology Attending Provider: Filiberto De Leon Primary Care Provider: [facility],[place] Discharge Orders/Prescriptions Prescriptions: New oxycodone 5 mg Tablet 5 mg PO Q4H PRN PRN (Reason: Pain Score 6-10) 5 Days Qty: 10 0RF Continued cholecalciferol (vitamin D3) 50 mcg (2,000 unit) Tablet 50 mcg PO DAILY simethicone 80 mg Tablet,Chewable 80 mg PO DAILY amlodipine 10 mg Tablet 10 mg PO DAILY sildenafil 50 mg Tablet 50 mg PO PRN PRN (Reason: Erectile Dysfunction) Rx Instructions: administer 30 minutes to 4 hours before activity loperamide 2 mg Tablet 2 mg PO Q4H PRN PRN (Reason: Diarrhea) Rx Instructions: administer after each loose stool until symptoms controlled; do not exceed 8 mg per 24 hrs tamsulosin 0.4 mg Capsule 0.4 mg PO DAILY glucosamine-chondroitin 750 mg capsule 1 mg PO/SL DAILY Referrals / Follow Up: [facility],[place] [Primary Care Provider] - Disposition Disposition (needs filled in before D/C Order can be placed): Home, Self Care
[2022-03-31] MEDS: amLODIPine 10 MG Tablet PO (11:52)
[2022-03-31] MEDS: Potassium Chloride Oral Tablet 20 MEQ 40 MEQ PO (11:52)
[2022-03-31 14:00] VITALS: BP 130/83; PULSE 73; RESP 16; TEMP 36.7; O2SAT 95
[2022-03-31] MEDS: Tamsulosin HCl 0.4 MG Capsule PO (17:00)
[2022-03-31 23:00] VITALS: BP 135/86; PULSE 76; RESP 16; TEMP 36.7; O2SAT 96
[2022-04-01 05:00] VITALS: BP 151/80; PULSE 81; RESP 16; TEMP 36.9; O2SAT 95
[2022-04-01] MEDS: Acetaminophen 500 MG Tablet 1000 MG PO (05:26)
[2022-04-01 06:06] LABS: Absolute Lymphocyte Count 1.27 X10^3/uL (0.83-4.51); Basophil# 0.02 X10^3/uL; Basophil% 0.3 % (0-1); Eosinophil# 0.09 X10^3/uL; Eosinophils% 1.5 % (0-5); Hematocrit 42.3 % (40-54); Hemoglobin 14.8 g/dL (13.0-16.5); Lymphocyte # 1.27 X10^3/ul (0.83-4.51); Mean Corpuscular Hgb 31.7 pg (27.0-32.0); Mean Corpuscular Volume 90.6 fL (80-94); Mean Platelet Vol. 9.8 fl (6.2-12.0); Monocyte# 0.63 X10^3/uL; Monocyte% 10.4 % (0-10); NRBC Flagged by Analyzer 0 % (0-5); Neutrophil # 4.01 X10^3/uL (2.7-7.7); Neutrophil % 66.5 % (47-70); Platelet Count 219 K/mm3 (150-450); RBC Distribution Width CV 12.1 % (11.6-14.6); RBC Distribution Width SD 40.1 fl (35.1-43.9); Red Blood Count 4.67 M/mm3 (4.6-6.2)
[2022-04-01 06:43] LABS: Anion Gap 8 (5-15); BUN 12 mg/dL (7-18); BUN/Creat Ratio 13.1 RATIO (10-20); Calcium,Total 8.5 mg/dL (8.5-10.1); Chloride 103 mmol/L (98-107); Creatinine, Serum 0.92 mg/dL (0.70-1.30); EST Glomerular Filtration Rate 86 mL/min (>60); Est Glom Filt Rate - Afr Amer 104 mL/min (>60); Glucose 93 mg/dL (74-106); Potassium 3.4 mmol/L (3.5-5.1); Sodium Level 136 mmol/L (136-145)
[2022-04-01 07:51] VITALS: BP 151/80; PULSE 81; RESP 16; TEMP 36.9; O2SAT 95
[2022-04-01] MEDS: amLODIPine 10 MG Tablet PO (07:56)
--- NOTE | 2022-04-01 07:57 | PCM.PN.SRG ---
Subjective Subjective Patient had a bowel movement, tolerating full liquids getting transitional this morning. Objective Data Objective Data Vital Signs: Vital Signs Temp Pulse Resp BP Pulse Ox O2 Del Method O2 Flow Rate 98.5 F 81 16 151/80 H 95 Room Air 1 04/01/22 07:51 04/01/22 07:51 04/01/22 07:51 04/01/22 07:51 04/01/22 07:51 04/01/22 07:51 04/01/22 07:51 Oxygen Flow Rate (L/min) 1 Oxygen Delivery Method Room Air Weight: 212 lb 12.784 oz Body Mass Index (BMI) 29.7 Intake & Output: Intake and Output for Last 24 Hours 03/30/22 03/31/22 04/01/22 23:59 23:59 23:59 Intake Total 1100 / 1100 1035 / 1035 Balance 1100 / 1100 1035 / 1035 Lab / Micro Data Result Diagrams: 04/01/22 05:09 04/01/22 05:09 Labs: Laboratory Results - last 24 hr 04/01/22 05:09: WBC 6.0, RBC 4.67, Hgb 14.8, Hct 42.3, MCV 90.6, MCH 31.7, MCHC 35.0, RDW Std Deviation 40.1, RDW Coeff of [place] 12.1, Plt Count 219, MPV 9.8, Immature Gran % (Auto) 0.300, Neut % (Auto) 66.5, Lymph % (Auto) 21.0, [place] % (Auto) 10.4 H, Eos % (Auto) 1.5, Baso % (Auto) 0.3, Absolute Neuts (auto) 4.0, Absolute Lymphs (auto) 1.27, Nucleated RBC % 0 04/01/22 05:09: Sodium 136, Potassium 3.4 L, Chloride 103, Carbon Dioxide 25.0, Anion Gap 8, BUN 12, Creatinine 0.92, Estim Creat Clear Calc 77.30, Est GFR (MDRD) Af Amer 104, Est GFR (MDRD) Non-Af 86, BUN/Creatinine Ratio 13.1, Glucose 93, Calcium 8.5, Phosphorus 2.0 L, Magnesium 2.0 Physical Exam Resp normal respiratory effort Cardio regular rate GI GI Narrative: Abdomen: Soft, nondistended, tender near incision's dressed clean dry and intact with angelique, no peritoneal signs Assessment & Plan Assessment/Plan (1) Appendicitis: (2) Cecum mass: (3) Status post right hemicolectomy: PLAN: Plan Patient is postoperative day 4 from emergent hand-assisted laparoscopic right hemicolectomy for cecal mass causing acute appendicitis. Patient tolerating full liquids will advance to transitional if tolerates will DC home as he is having bowel movements. Patient follow-up in office 7-9 days from surgery for staple removal. Marisa Ma M.D. Pager: [phone] [facility] [address] [place] [address], [address] [place] [address] Office: [phone]
--- NOTE | 2022-04-01 08:01 | PCM.DC.SUM ---
Providers Date of Admission: 03/28/22 Date of Discharge: 03/02/22 Primary Care Physician: [facility] Reason For Visit: APPENDICITIS, CECAL MASS Diagnosis Discharge Diagnosis (1) Appendicitis: Status: Acute Code(s): K37 - Unspecified appendicitis Qualifiers: Appendicitis type: acute appendicitis Plan: necrotizing acute (2) Cecum mass: Status: Acute Code(s): K63.89 - Other specified diseases of intestine Plan: Seen on CT.........pathology showed no mass/malignancy & 02/10 LN neg- just necrotizing acute appendicitis (3) Status post right hemicolectomy: Status: Acute Code(s): Z90.49 - Acquired absence of other specified parts of digestive tract Plan Patient is postoperative day 4 from emergent hand-assisted laparoscopic right hemicolectomy for cecal mass causing acute appendicitis. Patient tolerating full liquids will advance to transitional if tolerates will DC home as he is having bowel movements. Patient follow-up in office 7-9 days from surgery for staple removal. Addendum: Pathology showed no mass or malignancy--relayed to nursing to let patient know as I was unaware when seeing pt this AM the pathology was back. Marisa Ma M.D. Pager: [phone] [facility] [address] [place] [address], [facility], [address] [place] [address] Office: [phone] Medications at Discharge Home Medications amlodipine 10 mg tablet 10 mg PO DAILY Check with primary doctor 03/29/22 cholecalciferol (vitamin D3) 50 mcg (2,000 unit) tablet 50 mcg PO DAILY Check with primary doctor 03/29/22 glucosamine-chondroitin 1 mg PO/SL DAILY Check with primary doctor 03/29/22 loperamide 2 mg tablet 2 mg PO Q4H PRN PRN Diarrhea 03/29/22 sildenafil 50 mg tablet 50 mg PO PRN PRN Erectile Dysfunction 03/29/22 simethicone 80 mg chewable tablet 80 mg PO DAILY Check with primary doctor 03/29/22 tamsulosin 0.4 mg capsule 0.4 mg PO DAILY Check with primary doctor 03/29/22 oxycodone 5 mg tablet 5 mg PO Q4H PRN PRN Pain Score 6-10 5 days #10 tabs 03/31/22 Hospital Course Operations colectomy (hand assisted Right hemicolectomy) Procedures None Summary of Care Provided Hospital Course: Pt came to ER due to abd pain- CT a/p showed appendicitis and cecal mass at the base of appendix. Pt had Right hemicolectomy due to cecal mass/appendicitis. Post op pt did well, when he started to have flatus his diet was advanced to clears/fulls. After BM pt was about to be advanced to transitional and d/c home. Final pathology showed no cecal tumor, necrotizing appendicitis, 02/10 LN neg for any malignancy-- this was relayed to pt. Weight / BMI Weight Weight: 212 lb 12.784 oz Body Mass Index (BMI) 29.7 ABG / Lab / Microbiology Data Result Diagrams: 04/01/22 05:09 04/01/22 05:09 Laboratory: Laboratory Results - last 24 hr 04/01/22 05:09: WBC 6.0, RBC 4.67, Hgb 14.8, Hct 42.3, MCV 90.6, MCH 31.7, MCHC 35.0, RDW Std Deviation 40.1, RDW Coeff of [place] 12.1, Plt Count 219, MPV 9.8, Immature Gran % (Auto) 0.300, Neut % (Auto) 66.5, Lymph % (Auto) 21.0, [place] % (Auto) 10.4 H, Eos % (Auto) 1.5, Baso % (Auto) 0.3, Absolute Neuts (auto) 4.0, Absolute Lymphs (auto) 1.27, Nucleated RBC % 0 04/01/22 05:09: Sodium 136, Potassium 3.4 L, Chloride 103, Carbon Dioxide 25.0, Anion Gap 8, BUN 12, Creatinine 0.92, Estim Creat Clear Calc 77.30, Est GFR (MDRD) Af Amer 104, Est GFR (MDRD) Non-Af 86, BUN/Creatinine Ratio 13.1, Glucose 93, Calcium 8.5, Phosphorus 2.0 L, Magnesium 2.0 D/C Instructions Discharge Diet: Soft diet May resume sexual activity in: 2 weeks Ice area for (Minutes): 20 Call your doctor if your incision/area has: Sudden Increased Bleeding, Increased Pain/ Swelling, Increased Redness, Foul Smelling Discharge and Swelling at the incision site Call your doctor if you observe: Fever of 101 or Higher, Inability to urinate, Inability to have a bowel movement and Uncontrolled pain Suture Line Care: Avoid Pulling/Pushing Cleanse incision/area with: Keep Dressing Clean & Dry Please Follow Up With: Filiberto De Leon MD When: 1 week postop?next week for staple removal. After 5:00 on the weekends and concerns call [phone]. Meaningful Use Info Meaningful Use Diagnoses (Choose all that apply): None applicable Discharge Plan Admission Admit Date/Time: 03/28/22 15:31 Primary Reason for Your Visit: Acute appendicitis; colon mass was ruled out with pathology Attending Provider: Filiberto De Leon Primary Care Provider: [facility] Discharge Orders/Prescriptions Prescriptions: New oxycodone 5 mg Tablet 5 mg PO Q4H PRN PRN (Reason: Pain Score 6-10) 5 Days Qty: 10 0RF Continued cholecalciferol (vitamin D3) 50 mcg (2,000 unit) Tablet 50 mcg PO DAILY simethicone 80 mg Tablet,Chewable 80 mg PO DAILY amlodipine 10 mg Tablet 10 mg PO DAILY sildenafil 50 mg Tablet 50 mg PO PRN PRN (Reason: Erectile Dysfunction) Rx Instructions: administer 30 minutes to 4 hours before activity loperamide 2 mg Tablet 2 mg PO Q4H PRN PRN (Reason: Diarrhea) Rx Instructions: administer after each loose stool until symptoms controlled; do not exceed 8 mg per 24 hrs tamsulosin 0.4 mg Capsule 0.4 mg PO DAILY glucosamine-chondroitin 750 mg capsule 1 mg PO/SL DAILY Referrals / Follow Up: [place] [Primary Care Provider] - Disposition Disposition (needs filled in before D/C Order can be placed): Home, Self Care
[2022-04-01 09:53] VITALS: BP 125/93; PULSE 62; RESP 18; TEMP 36.4; O2SAT 97
--- NOTE | 2022-04-01 10:40 | NURSING ---
Call from Dr. Ma asking if pt had been aware of his results from the node biopsy from surgery? I told her that he had not heard anything yet. She asked that prior to discharging him to let him be aware of finding that all 9 nodes were negative for cancer.
== END 2022-04-01 10:42 | disposition home or self-care (01) | DRG 331 ==
LOC: ED 15:30 → ACINP 15:59 → MS3 15:59
PROVIDERS: Physician Assistant; Admitting Provider Surgery; Emergency Provider Emergency Medicine; Visit Provider Surgery
PROC: 0DTF4ZZ Resection of Right Large Intestine, Percutaneous Endoscopic Approach (ICD-10-PCS; CPT 44205; principal; 2022-03-28 15:40)
DX: K35.80 Unspecified acute appendicitis (principal); I10 Essential (primary) hypertension; K63.5 Polyp of colon; Z87.891 Personal history of nicotine dependence; K63.89 Other specified diseases of intestine
CPT/HCPCS: 36415; 74177; 80048; 80076; 81001; 83735; 84100; 85025; 88307; 88309; 93005; 94762; 99251; 99284; J7030; J7120; Q9967; A4216; C1760; G0463; J2405; J3490

== ENCOUNTER 2022-10-12 07:06 | Day surgery (SDC) | payer OTHER, SELFPAY ==
[2022-10-12 07:39] VITALS: BP 119/75; PULSE 60; RESP 16; TEMP 36.9; O2SAT 98; BMI 28.8
[2022-10-12] MEDS: Lactated Ringers 1,000 ML 15 ML IV (07:50)
--- NOTE | 2022-10-12 08:04 | HP.PCM_ITS ---
History and Physical Date of Admission: 10/12/22 Date of Service:? 08/23/22 MR#: [id number] Acct: [id number] Name:KEN BAEZ Rep #: [id number] : 1950 ? ? Provider: Dr. Filiberto De Leon MD Age/Sex:? 71/M ? ? Location: [facility] Status: Signed Intake Vital Signs ? 03/29/2213:18 08/24/2307:30 Height 5 ft 11 in 5 ft 11 in Weight: ? 215 lb BMI ? 29.9 BP ? 130/77 H Blood Pressure Location ? Rt brachial Position ? Sitting Respiration ? 16 Intake Visit Reasons:?COLONOSCOPY Chief Complaint: c-scope [employer] Required: No Is patient in pain?: No Allergies No Known Allergies Allergy (Verified 08/23/22 08:30) Medications amlodipine 10 mg tablet 10 mg PO DAILY Check with primary doctor 03/29/22 [History Confirmed 08/23/22] cholecalciferol (vitamin D3) 50 mcg (2,000 unit) tablet 50 mcg PO DAILY Check with primary doctor 03/29/22 [History Confirmed 08/23/22] glucosamine-chondroitin 1 mg PO/SL DAILY Check with primary doctor 03/29/22 [History Confirmed 08/23/22] loperamide 2 mg tablet 2 mg PO Q4H PRN PRN Diarrhea 03/29/22 [History Confirmed 08/23/22] sildenafil 50 mg tablet 50 mg PO PRN PRN Erectile Dysfunction 03/29/22 [History Confirmed 08/23/22] simethicone 80 mg chewable tablet 80 mg PO DAILY Check with primary doctor 03/29/22 [History Confirmed 08/23/22] tamsulosin 0.4 mg capsule 0.4 mg PO DAILY Check with primary doctor 03/29/22 [History Confirmed 08/23/22] PFSH Medical History?(Updated 08/23/22 @ 11:[address] Filiberto De Leon MD) Chronic diarrhea Former smoker Glaucoma Hearing loss, left Hearing loss, right Hypertension Myocardial infarct Staph infection Surgical History?(Updated 08/23/22 @ 11:[address] Filiberto De Leon MD) H/O right hemicolectomy Hx of appendectomy S/P knee surgery Social History?(Updated 08/23/22 @ 08:30 by Katalina Gu) Smoking Status:? Former smoker alcohol intake:? current HPI HPI HPI: Patient is a 71-year-old male who presents for need to schedule screening colonoscopy secondary to duration since previous scope.? He is known to me from a 03/29/2022 right hemicolectomy for presumed cecal mass causing acute appendicitis, however, final pathology only revealed distortion of the anatomy secondary to appendicitis.? It had been my recommendation to pursue a colonoscopy 6 months following surgery given duration since patient's prior screening and his positive family history.? They are referred for surgical consultation from [facility].? Mr. Goss states that he has done well following his surgery and has had no significant pain or significant change in his bowel habits.? He does admit, regarding the latter, that he continues to have stools that are on the looser side but that this does not require any Imodium and is no different from what he is experienced most of his life. Patient has had prior colonoscopy.? Mr. Goss reports this was done in [facility] 10 years ago.? He recalls the results being unremarkable.? Patient has no personal history of inflammatory bowel disease or diverticulitis. They describe their bowel habits as occurring with a regular frequency.? They have not noticed recent bleeding or dark stools.? They do not regularly take fiber supplements.? They consume a moderate amount of fiber in their regular diet (mentioning things like whole-grain bread, oatmeal, raw vegetables,?). Patient has a family history of colon cancer.? Patient's mother was reportedly diagnosed with colon cancer in her late 80s and ultimately passed in her 90s.? Additionally, patient's maternal uncle was diagnosed with colon cancer in his late 70s.? Mrs. Goss reports that she believes both her 's maternal aunt and maternal cousin required colon surgeries, but she cannot say with certainty that this was secondary to a diagnosis of colon cancer. ? The patient is not prescribed anticoagulants/blood thinners. Relevant prior abdominal surgical history includes: Right hemicolectomy March 2022 Patient does not have a significant history of GERD/heartburn. ROS General General: No weight change, appetite, fatigue, colon cancer, breast cancer or weakness HEENT HEENT: No difficulty swallowing, eye injury, eye surgery, swollen glands or hoarseness Endo Endocrine: No thyroid disease, diabetes mellitus, thyroid cancer, Hair loss, heat intolerance or cold intolerance Skin Skin: No rash or changing moles Breast Breast: No left breast lump, right breast lump, nipple discharge, breast pain, abnormal mammogram, abnormal US or breast enlargement Musc Musculoskeletal: No back problems, arthritis, rheumatoid arthritis, gout or joint pain Cardio Cardiovascular: Yes high blood pressure; No murmur, pacemaker, heart disease, atrial fibrillation, heart attack, heart stent, palpitations, shortness of breat with exertion or chest pain Psych Psychiatric: No depression, anxiety or hearing voices Resp Respiratory: No shortness of breath, No sleep apnea, No cough, No COPD, No asthma, No emphysema and No wheezing Gastro Gastrointestinal: No abdominal pain, No nausea or vomiting, Yes diarrhea, No constipation, No blood in stool, No acid reflux, No hemorrhoids, No ulcers, No gallbladder problem and No black,tarry stools [place] Hematologic: No blood thinners, No blood disorders, No bleeding, No anemia and No blood clots Neuro Neurologic: No system reviewed and no additional complaints, except as documented, No as per HPI, No abnormal gait, No abnormal hearing, No abnormal movements, No abnormal speech, No behavioral changes, No burning sensations, No confusion, No convulsions, No disequilibrium, No dizziness, No localized weakness, No frequent falls, No headache(s), No lack of coordination, No loss of vision, No memory loss, No numbness, No other visual disturbances, No radicular pain, No restless legs, No sensory deficit, No syncope, No tingling, No tremor(s), No weakness and No other Exam Const General: cooperative, comfortable and no acute distress Orientation: alert, awake and oriented x3 Resp Effort & Inspection: normal respiratory effort GI Other: Well-healed upper midline many laparotomy incision and laparoscopic port site incisions.? No visible herniation.? Abdomen is nondistended, soft, nontender to palpation x4 quadrants Assessment and Plan Assessment and Plan (1) Family history of colon cancer in mother: ?Status:?Acute (2) Family hx of colon cancer requiring screening colonoscopy: ?Status:?Acute ?Comment: Patient reports history of a colonoscopy 10 years ago in [facility] that was unremarkable for significant findings. (3) Status post right hemicolectomy: ?Status:?Acute ?Comment: Performed 03/29/2022 for evidence of possible cecal mass causing secondary appendicitis with CT imaging.? However, final pathology failed to show evidence of a malignancy. Plan Patient is a 71-year-old male who presents for 6-month follow-up after a right hemicolectomy was performed for a presumed cecal mass at a presentation for acute appendicitis.? After pathologic assessment was made, the pathology was reviewed with pathology and no tumor was ultimately found.? However, given that patient is now 10 years out from his last screening colonoscopy and does have a family history, I recommended repeating a colonoscopy to update his health maintenance.? He denies any interval issues since surgery, but continues to remark of looser stools.? Given that he may have some element of subacute colitis that could be adversely affecting his neck absorption, I recommend we pursue some random colonic biopsies at the time of our scope.? Otherwise I have discussed the procedure and preprocedure prep with both and Mrs. Goss.? We will plan to proceed with this scope under MAC sedation at their convenience. I have examined the patient and the H&P has been reviewed. There are no clinical changes since date of exam. Patient reports that he completed his prep successfully and that his output is now clear without sediment. He also states that he has not noticed any diarrhea recently. He reports simply that he has smaller, but soft and formed nonbloody stools. We will therefore proceed to the endoscopy suite for planned colonoscopy as discussed above.
[2022-10-12 08:40] VITALS: BP 119/75; BP 97/65; PULSE 69; RESP 16; TEMP 36.3; O2SAT 97
[2022-10-12 08:45] VITALS: BP 119/75; BP 95/62; PULSE 66; RESP 16; O2SAT 97
--- NOTE | 2022-10-12 08:48 | OP.CCLET_ITS ---
10/12/2022 [facility] Re : Colonoscopy procedure for [facility] This procedure was performed on October. My impressions and recommendations are as follows: Impressions : - Hyperpigmented lesion at anal verge found on perianal exam. - The rectum, sigmoid colon, descending colon, transverse colon, hepatic flexure and colonic anastomosis are normal. No specimens collected. - The distal rectum and anal verge are normal on retroflexion view. Recommendations : - Discharge patient to home (via wheelchair). - Resume previous diet today. - Continue present medications. - Repeat colonoscopy in 5 years for surveillance. - Telephone my office for study results. My findings are described in the full procedure note, which is enclosed. If I can be of further assistance, please feel free to contact me at Doctor phone number(s): , Work: . Sincerely, Filiberto De Leon MD 10/12/2022 8:47:58 AM This report has been signed electronically.
--- NOTE | 2022-10-12 08:48 | OP.COLON_ITS ---
Patient Name: Max Goss Procedure Date: 10/12/2022 8:02 AM Date of : 1950 Age: 71 Procedure: Colonoscopy Indications: Colon polyps of uncertain behavior Providers: Filiberto De Leon MD Referring MD: [facility] Medicines: See the Anesthesia note for documentation of the administered medications Patient Profile: Refer to note in patient chart for documentation of history and physical. Last Colonoscopy: 10 years ago. Complications: No immediate complications. Estimated blood loss: None. Procedure: Pre-Anesthesia Assessment: - The heart rate, respiratory rate, oxygen saturations, blood pressure, adequacy of pulmonary ventilation, and response to care were monitored throughout the procedure. After I obtained informed consent, the scope was passed under direct vision. Throughout the procedure, the patient's blood pressure, pulse, and oxygen saturations were monitored continuously. The adult colonoscope was introduced through the anus and advanced to the ileocolonic anastomosis. The colonoscopy was performed without difficulty. The patient tolerated the procedure well. The quality of the bowel preparation was good. Scope In: 8:15:17 AM Scope Withdrawal Time 0 hours 13 minutes 9 seconds Scope Out: 8:36:44 AM Total Procedure Duration Time 0 hours 21 minutes 27 seconds Findings: The perianal exam findings include hyperpigmented lesion at anal verge. The rectum, sigmoid colon, descending colon, transverse colon, hepatic flexure and anastomosis appeared normal. No biopsies or other specimens were collected for this exam. The retroflexed view of the distal rectum and anal verge was normal and showed no anal or rectal abnormalities. No biopsies or other specimens were collected for this exam. Impression: - Hyperpigmented lesion at anal verge found on perianal exam. - The rectum, sigmoid colon, descending colon, transverse colon, hepatic flexure and colonic anastomosis are normal. No specimens collected. - The distal rectum and anal verge are normal on retroflexion view. Recommendation: - Discharge patient to home (via wheelchair). - Resume previous diet today. - Continue present medications. - Repeat colonoscopy in 5 years for surveillance. - Telephone my office for study results. Procedure Code(s): --- Professional --- 89923, Colonoscopy, flexible; diagnostic, including collection of specimen(s) by brushing or washing, when performed (separate procedure) Diagnosis Code(s): --- Professional --- D37.4, Neoplasm of uncertain behavior of colon CPT copyright 2017 [employer]. All rights reserved. The codes documented in this report are preliminary and upon allergist/pediatric pulmonologist review may be revised to meet current compliance requirements. Filiberto De Leon MD 10/12/2022 8:47:58 AM This report has been signed electronically. Number of Addenda: 0 Note Initiated On: 10/12/2022 8:02 AM
[2022-10-12 08:50] VITALS: BP 107/63; BP 119/75; PULSE 71; RESP 16; O2SAT 97
[2022-10-12 08:55] VITALS: BP 115/70; BP 119/75; PULSE 68; RESP 16; TEMP 36.5; O2SAT 97
[2022-10-12 09:17] VITALS: BP 119/75
== END 2022-10-12 09:26 | disposition home or self-care (01) ==
LOC: EN 07:08 → AC 07:09
PROVIDERS: Visit Provider Surgery
PROC: 0DJD8ZZ Inspection of Lower Intestinal Tract, Via Natural or Artificial Opening Endoscopic (ICD-10-PCS; CPT 45378; principal; 2022-10-12 08:10)
DX: K63.5 Polyp of colon (principal); Z87.891 Personal history of nicotine dependence; K37 Unspecified appendicitis; Z80.0 Family history of malignant neoplasm of digestive organs; D37.4 Neoplasm of uncertain behavior of colon
CPT/HCPCS: 45378; J7120; J2405